=== PATIENT | female | born 1955 | race Caucasian/White ===

== ENCOUNTER 2020-03-05 13:06 | Emergency (ER) | payer OTHER ==
[~2020-03-05] VITALS: Ht 157.5 cm; Wt 59.0 kg
[2020-03-05 13:13] VITALS: BP 131/66
== END 2020-03-05 15:28 | disposition home or self-care (01) ==
LOC: ER 13:06
DX: S80.811A Abrasion, right lower leg, initial encounter (principal); E78.00 Pure hypercholesterolemia, unspecified; E03.9 Hypothyroidism, unspecified; I10 Essential (primary) hypertension; Z88.0 Allergy status to penicillin; Z88.6 Allergy status to analgesic agent; Z85.9 Personal history of malignant neoplasm, unspecified; W53.11XA Bitten by rat, initial encounter; Y93.89 Activity, other specified; Y92.89 Other specified places as the place of occurrence of the external cause; Y99.8 Other external cause status
CPT/HCPCS: 99283

== ENCOUNTER 2021-08-14 18:16 | Emergency (ER) | payer OTHER ==
[~2021-08-14] VITALS: Ht 157.5 cm; Wt 61.0 kg
[2021-08-14] MEDS ORDERED: KETOROLAC 60MG/2ML VIAL IM ONE (21:15)
[2021-08-14] MEDS ORDERED: LIDOCAINE HCL 1% 20ML VIAL (Pyxis) INJ INFIL ONE (21:15)
[2021-08-14 23:14] VITALS: BP 130/76
== END 2021-08-14 23:15 | disposition home or self-care (01) ==
LOC: ER 18:16
DX: S63.592A Other specified sprain of left wrist, initial encounter (principal); W01.0XXA Fall on same level from slipping, tripping and stumbling without subsequent striking against object, initial encounter; Y93.89 Activity, other specified; Y92.89 Other specified places as the place of occurrence of the external cause; Z88.0 Allergy status to penicillin; Z88.6 Allergy status to analgesic agent; Z85.53 Personal history of malignant neoplasm of renal pelvis; Z98.890 Other specified postprocedural states
CPT/HCPCS: 73110; 96372; 99283; J1885; J3490

== ENCOUNTER 2022-03-18 09:34 | Emergency (ER) | payer MEDICAID, OTHER ==
[~2022-03-18] VITALS: Ht 157.5 cm; Wt 61.0 kg
[2022-03-18 09:36] VITALS: BP 136/69
[2022-03-18] MEDS ORDERED: ONDANSETRON HCL 4MG/2ML INJ IV STA (11:00)
[2022-03-18] MEDS ORDERED: SODIUM CHLORIDE 0.9% 1,000 ML IV ONE (11:00)
[2022-03-18 12:41] LABS: BASOPHILS % 1.2 % (0.0-2.0); EOSINOPHILS % 2.8 % (0.0-5.0); HEMATOCRIT. 29.9 % (36.0-48.0); HEMOGLOBIN. 10.2 g/dL (12.0-16.0); LYMPHOCYTES % 20.8 % (20.0-50.0); MEAN CORPUSCULAR HEMOGLOBIN 29.2 pg (28.0-32.0); MEAN CORPUSCULAR VOLUME 85.2 fL (81.0-99.0); MEAN PLATELET VOLUME 7.8 fl (7.4-10.4); MONOCYTES % 7.9 % (2.0-8.0); NEUTROPHILS % 67.3 % (40.0-76.0); PLATELET 94 x1000/uL (130-400); RED CELL DISTRIBUTION WIDTH 16.2 % (11.6-14.6)
[2022-03-18 12:47] LABS: CHLORIDE 100 mEq/L (98-107)
[2022-03-18] MEDS ORDERED: ONDANSETRON HCL 4MG/2ML INJ IV NR (13:30)
[2022-03-18] MEDS ORDERED: ACETAMINOPHEN 325MG TABLET PO NR (13:45)
== END 2022-03-18 16:16 | disposition home or self-care (01) ==
LOC: ER 09:34
DX: R19.7 Diarrhea, unspecified (principal); Z88.0 Allergy status to penicillin; Z88.6 Allergy status to analgesic agent; Z85.43 Personal history of malignant neoplasm of ovary; Z20.822 Contact with and (suspected) exposure to COVID-19; Z98.890 Other specified postprocedural states
CPT/HCPCS: 36415; 71045; 80053; 83690; 85025; 87426; 87804; 96361; 96374; 99284; C9803; J2405; J7030

== ENCOUNTER 2022-05-01 11:39 | Emergency (ER) | payer MEDICAID ==
[~2022-05-01] VITALS: Ht 154.9 cm; Wt 62.0 kg
[2022-05-01] MEDS ORDERED: ASPIRIN 81MG TABLET PO ONE (12:15)
[2022-05-01 12:33] LABS: EOSINOPHILS % 2.2 % (0.0-5.0); HEMATOCRIT. 29.1 % (36.0-48.0); HEMOGLOBIN. 10.3 g/dL (12.0-16.0); LYMPHOCYTES % 18.3 % (20.0-50.0); MEAN CORPUSCULAR HEMOGLOBIN 30.1 pg (28.0-32.0); MEAN CORPUSCULAR VOLUME 85.4 fL (81.0-99.0); MEAN PLATELET VOLUME 7.6 fl (7.4-10.4); MONOCYTES % 8.5 % (2.0-8.0); PLATELET 131 x1000/uL (130-400); RED BLOOD CELL COUNT 3.41 mill/uL (4.2-5.4)
[2022-05-01 12:39] LABS: CHLORIDE 93 mEq/L (98-107)
[2022-05-01 18:00] VITALS: BP 131/60
[2022-05-01] MEDS ORDERED: AZIT250T MT (18:37)
[2022-05-01] MEDS ORDERED: IOHEXOL-350 100 ML BOTTLE ONE (18:49)
== END 2022-05-01 18:58 | disposition home or self-care (01) ==
LOC: ER 11:49
DX: R07.89 Other chest pain (principal); I10 Essential (primary) hypertension; E78.00 Pure hypercholesterolemia, unspecified; Z88.5 Allergy status to narcotic agent; Z88.0 Allergy status to penicillin; Z85.3 Personal history of malignant neoplasm of breast
CPT/HCPCS: 36415; 71045; 71275; 80053; 83690; 83880; 84484; 85025; 85379; 93005; 99285; Q9967; Z7610